=== PATIENT | female | born 1960 | race Caucasian/White ===

== ENCOUNTER 2017-11-21 00:39 | Emergency (ER) | payer MEDICAID, OTHER ==
[~2017-11-21] VITALS: Ht 165.1 cm; Wt 63.5 kg
--- NOTE | 2017-11-21 01:03 | NUR ---
Patient discharged to home in stable conditon. Written and verbal after care instructions given. Patient verbalizes understanding of instructions. Patient able to ambulate unassisted with steady gait. Patient left with all her belongings.
[2017-11-21 01:07] VITALS: BP 134/60
[2017-11-21] MEDS ORDERED: THYROID (01:07)
== END 2017-11-21 01:09 | disposition home or self-care (01) ==
LOC: ER 00:41
DX: B02.9 Zoster without complications (principal)
CPT/HCPCS: A4663

== ENCOUNTER 2019-12-02 15:20 | Emergency (ER) | payer OTHER ==
[~2019-12-02] VITALS: Ht 165.1 cm; Wt 59.0 kg
--- NOTE | 2019-12-02 15:47 | NUR ---
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
--- NOTE | 2019-12-02 16:02 | NUR ---
LAB AT BEDSIDE
--- NOTE | 2019-12-02 16:10 | NUR ---
PT BROUGHT DOWN TO RADIOLOGY ACC BY WASTEWATER SUPERVISOR
[2019-12-02 16:16] LABS: BASOPHILS % (AUTO) 0.2 % (0.0-2.0); EOSINOPHILS # (AUTO) 0.2 K/uL (0.0-0.7); EOSINOPHILS % (AUTO) 2.4 % (0.0-7.0); HEMATOCRIT 37.2 % (31.2-41.9); HEMOGLOBIN 12.1 g/dL (10.9-14.3); LYMPHOCYTES # (AUTO) 1.9 K/uL (20.0-40.0); LYMPHOCYTES % (AUTO) 22.9 % (20.5-51.5); MEAN CORPUSCULAR HEMOGLOBIN 26.3 uug (24.7-32.8); MEAN CORPUSCULAR HGB CONC 33 g/dL (32.3-35.6); MEAN CORPUSCULAR VOLUME 80.7 fL (75.5-95.3); MONOCYTES # (AUTO) 0.5 K/uL (2.0-10.0); MONOCYTES % (AUTO) 6.4 % (0.0-11.0); NEUTROPHILS # (AUTO) 5.8 K/uL (1.8-8.9); NEUTROPHILS % (AUTO) 68.1 % (38.5-71.5); PLATELET COUNT (AUTO) 314 K/uL (179-408); RED BLOOD CELL COUNT(AUTO) 4.61 MIL/uL (3.63-4.92); WHITE BLOOD COUNT (AUTO) 8.5 K/uL (3.8-11.8)
[2019-12-02 16:22] LABS: CREATININE 0.7 mg/dL (0.6-1.3); POTASSIUM 3.7 mmol/L (3.5-5.1)
[2019-12-02 16:28] LABS: BILIRUBIN,DIRECT 0.1 mg/dL (0.0-0.2); BILIRUBIN,TOTAL 0.2 mg/dL (0.2-1.0); TOTAL PROTEIN, SERUM 7.7 g/dL (6.4-8.2)
--- NOTE | 2019-12-02 16:30 | NUR ---
PT BACK FROM CT PT SI RA, NAD, AMBULATORY
[2019-12-02 16:44] LABS: *BILIRUBIN,URIN NEGATIVE (NEGATIVE); *CLARITY,URINE CLEAR (CLEAR); *COLOR,URINE YELLOW (YELLOW); *KETONES,URINE NEGATIVE (NEGATIVE); *UROBILINOGEN,URINE 0.2 E.U./dl (NORMAL); LEUKOCYTE ESTERASE ,URINE NEGATIVE (NEGATIVE); NITRITE, URINE NEGATIVE (NEGATIVE); UGLUCOSE NEGATIVE (NEGATIVE)
[2019-12-02 16:49] LABS: *BLOOD, URINE TRACE (NEGATIVE)
[2019-12-02 16:50] LABS: SQUAMOUS EPITHELIAL CELL,UR FEW /HPF (NONE SEEN); WBC,URINE 0-3 /HPF (0-3)
--- NOTE | 2019-12-02 17:18 | NUR ---
Patient discharged to home in stable conditon. Written and verbal after care instructions given. Patient verbalizes understanding of instructions. ambulatory w/ stable gait all belongings w/ pt
[2019-12-02 17:32] VITALS: BP 138/89
== END 2019-12-02 17:32 | disposition home or self-care (01) ==
LOC: ER 15:30
DX: J20.9 Acute bronchitis, unspecified (principal); M54.16 Radiculopathy, lumbar region
CPT/HCPCS: 36415; 71046; 72110; 85025; 87400; A4663